=== PATIENT | male | born 1950 | race Caucasian/White ===

== ENCOUNTER 2018-01-25 05:28 | Day surgery (SDC) | payer OTHER ==
[~2018-01-25] VITALS: Ht 172.7 cm; Wt 82.6 kg
--- NOTE | ~2018-01-25 | OP ---
PATIENT NAME: GIFTY OLEA MEDICAL RECORD: [id number] :49 LOCATION:[facility] ADMISSION DATE: SURGEON: AMOS LINN MD DATE OF OPERATION: 01/25/2018 PREOPERATIVE DIAGNOSIS: Claudication of the left lower extremity with rest pain. POSTOPERATIVE DIAGNOSES: 1. Claudication of the left lower extremity with rest pain. 2. Multilevel arterial stenoses, flow limiting, within the superficial femoral artery, left. 3. 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 4. Multilevel stenoses within the posterior tibial artery on the left. 5. Stenosis of the tibioperoneal trunk as well as the peroneal artery. The peroneal artery then becomes much larger. PROCEDURE: 1. Diamondback orbital atherectomies of the tibioperoneal trunk/peroneal artery, utilizing a Diamondback 1.5 mm crown. 2. Orbital atherectomies of the superficial femoral artery/popliteal artery utilizing the Diamondback 1.5 mm crown. 3. Post-atherectomy, balloon angioplasties of the tibioperoneal trunk and peroneal artery, 3.0 mm. 4. Balloon angioplasty of the left superficial femoral artery/popliteal artery, 5.0 mm. 5. Pelvic aortogram with runoff. 6. Selective left common femoral artery. Arteriogram with runoff images. 7. Right external iliac artery arteriogram. 8. Placement of 6-Tunisian crossover sheath, right common femoral artery. 9. Immediate surgeon interpretation of radiographic images. The patient was seen in the holding area. He has rest pain bilaterally. This is worse on the left. He has claudication that is severe on the left. No open wounds. No radiologist was present for this procedure. Static images as well as fluoroscopic cine images were obtained and are kept in the PACS system. The surgeon interpretation of the radiographic images is dictated within the body of this operative note. OPERATIVE COURSE: The patient was conveyed to the operating room electively on 01/25/2018. General anesthesia was induced by the anesthesia staff. Both groins were sterilely prepped and draped. Under ultrasonographic guidance, I percutaneously accessed the right common femoral artery in a retrograde fashion. Utilizing micropuncture technique, a microwire was placed under fluoroscopy. A small dilator and sheath were placed. The dilator wire were removed. Through the sheath, 0.035 J wire was advanced. Over the 0.035 J wire, a 5-Tunisian dilator sheath was advanced. The dilator and wire were removed. The sheath was sutured in place. Through the sheath, I performed a "sheathogram" which was a nonselective right external iliac arteriogram. This was done to determine whether there were stenoses or plaque within the superficial femoral artery that would preclude placement of a closure device such as an Angio-Seal, at the end of the procedure. The arteries were smooth-walled and were of significant size OPERATIVE REPORT [id number] GIFTY OLEA to accommodate a 6-Tunisian Angio-Seal. Through the sheath, I advanced 0.035 Glidewire. It was advanced up into the aorta. Over the Glidewire I advanced a 5-Tunisian pigtail catheter. I reformed the pigtail catheter in the distal aorta. A pelvic aortogram was performed. The patient had a previous known mild contrast allergy. For this reason, he was premedicated prior to this procedure with Benadryl as well as the steroids. I then advanced the Glidewire. I withdrew the pigtail catheter. I cutoff all portion of the pigtail catheter. I advanced it back over the Glidewire. The Glidewire was removed. I was able to place the pigtail catheter over the aortic bifurcation and was able to advance a Glidewire up the catheter and down the left external iliac system and into the left femoral arterial system. I advanced the pigtail catheter. I removed the Glidewire. Through the pigtail catheter, I advanced an Amplatz wire. Pigtail catheter was removed. Over the Amplatz wire, I removed the 5-Tunisian sheath. I advanced a crossover 6-Tunisian sheath. Through the sheath, sequential arteriograms were performed under digital subtraction. We also performed a bolus jacob arteriogram. Glow 'N Tell tapes were applied. We took some obliques as well. There appeared to have been at least 2 flow-limiting stenoses within the left superficial femoral artery, one was about 85% stenosis, it was focal. Another one was longer and was about 60% stenosis. Images were obtained below the knee as well. The findings are listed above. There was a very large distal peroneal artery and it actually reconstituted the anterior tibial artery. There was a very large posterior tibial artery down into the foot, which supplied most of the blood supply to the foot; however, the dorsalis pedis artery was still patent. I advanced a Regalia wire. Over the Regalia wire, I advanced a Quick-Cross catheter. It was advanced down of the peroneal artery. Through the Quick-Cross catheter, I advanced the FiberWire and the Quick-Cross catheter was then removed. Over the FiberWire, I loaded a 1.5 mm Diamondback crown and performed orbital atherectomies at low, medium and high speeds of the superficial femoral artery as well as the popliteal artery. I then used the same crown at low and medium speeds to perform orbital atherectomies of the tibioperoneal trunk and the proximal peroneal artery. The Diamondback crown was removed. The FiberWire was kept in place. A subsequent arteriograms revealed improvement in the stenoses; however, there were suboptimal improvements and for this reason, balloon angioplasties were indicated. I advanced a 3 mm angioplasty balloon. Balloon angioplasties at 3 minutes were performed in the peroneal artery as well as the tibioperoneal trunk. I changed out the 3 mm balloon for a very long 5 mm balloon. Balloon angioplasties at 8 atmospheres times 3 minutes were performed. I balloon angioplastied the entire length of the superficial femoral artery as well as the popliteal artery. Angioplasty balloon was removed. A bolus jacob arteriogram was attempted; however, the improvement in flow was so great that the architectural technician really could not keep up with the contrast bolus. For this reason, sequential digital subtraction images were obtained down the entire extremity. The flow was much, much more brisk than it had before of the arterial interventions. There had been marked improvement in the stenoses. I saw no residual significant stenosis of greater than 10% in the superficial femoral artery. I noted no stenosis within the popliteal artery. There was a residual 10% stenosis within the tibioperoneal trunk. I noted no significant stenosis within the peroneal artery. OPERATIVE REPORT [id number] GIFTY OLEA I removed the Fiberwire, I advanced a Glidewire. The crossover sheath was removed. I then advanced an Angio-Seal device. It was deployed. Hemostasis was immediate. Pressure was held for 20 minutes. A sand bag was applied. The patient was then extubated and conveyed to post-anesthesia care unit where he was in stable condition. My plan is to dismiss him back to the residential later on today. He will need to lie flat for 4 hours before going back to the residential. I am going to recommend that he be placed on Plavix for life. Should he have recurrent symptoms or worsening in claudication or even open wounds than we could reintervene and at that time could try to recanalize the anterior tibial artery and also correct the multiple level stenoses within the posterior tibial artery. However, I thought that it was best not to be too aggressive in this man's case for fear that we could actually make things worse. TRANSINT:[id number] Voice Confirmation ID: [id number] DOCUMENT ID: [id number] AMOS LINN MD at 0039 CC: NATALIE LEDESMA MD, AMOS HAUSER MD, RAISA PRICE MD and [id number] DICTATION DATE: 01/25/181853 ASSISTANT ADMINISTRATOR: 01/25/182007 [facility] 01/25/18 [facility] [address] [place] [address]
[2018-01-25 06:21] LABS: ANION GAP 16.1 mmol/L (8-16); CALCIUM 9.1 mg/dL (8.5-10.1); CARBON DIOXIDE 24.4 mmol/L (21.0-32.0); POTASSIUM - SERUM 4.5 mmol/L (3.5-5.1)
[2018-01-25 06:26] LABS: BASOPHILS 0.3 % (0-2); HEMATOCRIT 39.6 % (42.0-54.0); HEMOGLOBIN 12.9 g/dL (13.5-17.5); IMMATURE GRANULOCYTES 0.2 % (0-5); LYMPHOCYTES 26.8 % (15-50); MCH 30.3 pg (26.0-34.0); MCHC 32.6 g/dL (31.0-37.0); MEAN PLATELET VOLUME 10.2 fL (7.4-10.4); MONOCYTES 7.7 % (2-11); PLATELET COUNT 251 10x3/uL (130-400); RBC 4.26 10x6/uL (4.20-6.10)
[2018-01-25 06:27] LABS: APTT 28.3 SECONDS (22.8-39.4); INR 0.94 (0.85-1.17); PROTIME 12.2 SECONDS (11.6-15.0)
[2018-01-25] MEDS ORDERED: NORVASC10 MG PO (07:44)
[2018-01-25] MEDS ORDERED: PROTONIX20 MG PO (07:45)
[2018-01-25] MEDS ORDERED: FLOMAX0.4 MG PO (07:45)
[2018-01-25] MEDS ORDERED: BAYER CHEWABLE81 MG PO (07:45)
[2018-01-25] MEDS ORDERED: ZOCOR20 MG PO (07:46)
[2018-01-25] MEDS ORDERED: LASIX40 MG PO (07:46)
[2018-01-25] MEDS ORDERED: HUMULIN 70100 UNIT/1 SC ×2 (07:47→07:48)
[2018-01-25] MEDS ORDERED: ACETAMINOPHEN500 M1 PO (07:48)
[2018-01-25] MEDS ORDERED: CETIRIZINE HCL5 MG PO (07:49)
[2018-01-25 07:58] VITALS: Ht 172.7 cm; Wt 82.6 kg
[2018-01-25] MEDS ORDERED: CYMBALTA20 MG PO (08:05)
[2018-01-25] MEDS ORDERED: GABAPENTIN100 MG PO (08:05)
== END 2018-01-25 19:48 | disposition home or self-care (01) ==
LOC: D.SDCHOLD 05:28 → D.OPS 05:28 → EDBD 05:28 → D.SDCHOLD 05:28 → EDSTATUS 09:30 → D.SDCHOLD 09:30 → D.OPS 19:48
PROVIDERS: Anesthesiology
DX: I70.222 Atherosclerosis of native arteries of extremities with rest pain, left leg (principal); I70.92 Chronic total occlusion of artery of the extremities; Z01.812 Encounter for preprocedural laboratory examination

== ENCOUNTER 2018-10-18 05:22 | Day surgery (SDC) | payer OTHER ==
[~2018-10-18] VITALS: Ht 172.7 cm; Wt 82.6 kg
[~2018-10-18 05:22] MED LIST: ACETAMINOPHEN500 M1 PO; BAYER CHEWABLE81 MG PO; CETIRIZINE HCL5 MG PO; CYMBALTA20 MG PO; FLOMAX0.4 MG PO; GABAPENTIN100 MG PO; HUMULIN 70100 UNIT/1 SC; LASIX40 MG PO; NORVASC10 MG PO; PROTONIX20 MG PO; ZOCOR20 MG PO
[2018-10-18] MEDS ORDERED: GABAPENTIN100 MG PO (06:20)
[2018-10-18] MEDS ORDERED: PAMELOR 25 MG C25 MG PO (06:20)
[2018-10-18] MEDS ORDERED: PROSCAR5 MG PO (06:21)
[2018-10-18] MEDS ORDERED: HUMULIN 70100 UNIT/1 SC ×2 (06:25)
[2018-10-18] MEDS ORDERED: ZESTRIL20 MG PO (06:26)
[2018-10-18] MEDS ORDERED: OMEPRAZOLE20 M1 PO (06:28)
[2018-10-18] MEDS ORDERED: PLAVIX75 MG PO (06:28)
[2018-10-18] MEDS ORDERED: NEPHRO-VITE RX1 TAB PO (06:29)
[2018-10-18 06:30] LABS: HEMATOCRIT 35.3 % (42.0-54.0); HEMOGLOBIN 11.6 g/dL (13.5-17.5); INR 1.07 (0.85-1.17); MCH 31.3 pg (26.0-34.0); MCHC 32.9 g/dL (31.0-37.0); MCV 95.1 fL (80.0-100.0); MEAN PLATELET VOLUME 9.8 fL (7.4-10.4); PROTIME 13.4 SECONDS (11.6-15.0); RBC 3.71 10x6/uL (4.20-6.10); RDW 14.1 % (11.5-14.5); WBC 4.4 10x3/uL (4.8-10.8)
[2018-10-18] MEDS ORDERED: CARDURA4 MG PO (06:30)
[2018-10-18 06:37] VITALS: BP 137/73; Ht 172.7 cm; Wt 82.6 kg
[2018-10-18 06:50] LABS: ANION GAP 15.3 mmol/L (8-16); CALCIUM 8.9 mg/dL (8.5-10.1); CARBON DIOXIDE 25.2 mmol/L (21.0-32.0); CREATININE - SERUM 5.4 mg/dL (0.6-1.3); POTASSIUM - SERUM 4.5 mmol/L (3.5-5.1)
--- NOTE | 2018-10-18 09:56 | OP ---
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 PROCEDURES: Cystoscopy, transurethral resection of the prostate. SPECIMENS: Prostate resection chips. ESTIMATED BLOOD LOSS: Minimal. FINDINGS: Bilateral lateral lobe hyperplasia, single ureteral orifices bilaterally. No bladder tumors. CLINICAL HISTORY: This is a 68-year-old male, who is a prisoner. He has been in urinary retention since December of 2017. He was initially seen at [facility] and they performed cystoscopy and noted lateral lobe hyperplasia of the prostate. He was scheduled at [facility] for GreenLight laser TURP. However, he had cardiac issues and these had to be addressed first. He now comes here to have the TURP done here. My aim is to resect tissue quickly with the standard resection loop and then convert to the button electrode at the end for better hemostasis. The aim is to send him back to the [facility] facility with a Epperson catheter. He is allergic to multiple drugs, but not Levaquin. He was given Levaquin IV finance professional to the OR. DESCRIPTION OF PROCEDURE: The patient was given induction of general anesthesia. He was then placed in the lithotomy position and prepped and draped. The 21-American cystoscope was introduced and the findings are as outlined above. We then switched to the bipolar resectoscope with normal saline for irrigation. A 24-American resection loop was used for the 26-American resectoscope. First, the posterior floor from the bladder neck to just proximal to the verumontanum was resected. Then, each of the lateral lobe was taken down to the capsule. Finally, some of the anterior fibromuscular stroma was taken down as that was bleeding. We then used the Ellik evacuator to remove all the resection chips. Then, we switched to the button electrode and the entire resection surface was coagulated and smoothed out using the button electrode. At the end of the procedure, no arterial bleeding was seen. There was very minimal to no venous bleeding. The Ellik evacuator was used one last time to remove any small chips that may have remained. We then inserted a 24-American 3-way Epperson catheter into the bladder. The balloon was inflated with 30 cc of sterile water. The balloon inflow port was plugged with a catheter plug. The catheter was put to bag drainage. The patient was then awakened and brought to the recovery room. He will be transferred back to [facility]. TRANSINT:[id number] Voice Confirmation ID: [id number] DOCUMENT ID: [id number] OPERATIVE REPORT [id number] GIFTY OLEA, AMOS Mcginnis MD at 0956 CC: [id number] DICTATION DATE: 10/18/1856 MANAGING PRINCIPAL: 10/18/18 0942 [facility] [address] [place] [address]
== END 2018-10-18 12:00 ==
LOC: D.OPS 05:22
PROVIDERS: Anesthesiology; ATTEND Urology
DX: N40.1 Benign prostatic hyperplasia with lower urinary tract symptoms (principal); N13.8 Other obstructive and reflux uropathy; R33.8 Other retention of urine; Z01.812 Encounter for preprocedural laboratory examination

== ENCOUNTER 2019-03-07 06:12 | Day surgery (SDC) | payer OTHER ==
[~2019-03-07] VITALS: Ht 172.7 cm; Wt 84.4 kg
[~2019-03-07 06:12] MED LIST changes: +CARDURA4 MG PO; +NEPHRO-VITE RX1 TAB PO; +OMEPRAZOLE20 M1 PO; +PAMELOR 25 MG C25 MG PO; +PLAVIX75 MG PO; +PROSCAR5 MG PO; +ZESTRIL20 MG PO
[2019-03-07 07:16] LABS: HEMATOCRIT 38.8 % (42.0-54.0); HEMOGLOBIN 12.4 g/dL (13.5-17.5); MCH 31.5 pg (26.0-34.0); MCV 98.5 fL (80.0-100.0); MEAN PLATELET VOLUME 9.7 fL (7.4-10.4); RBC 3.94 10x6/uL (4.20-6.10); RDW 13.1 % (11.5-14.5); WBC 5.2 10x3/uL (4.8-10.8)
[2019-03-07] MEDS ORDERED: NORVASC10 MG PO (07:22)
[2019-03-07 07:23] LABS: ANION GAP 19.1 mmol/L (8-16); CARBON DIOXIDE 22.2 mmol/L (21.0-32.0); CREATININE - SERUM 5.4 mg/dL (0.6-1.3)
[2019-03-07 07:25] LABS: POTASSIUM - SERUM 5.3 mmol/L (3.5-5.1)
[2019-03-07 07:30] VITALS: Ht 172.7 cm; Wt 84.4 kg
--- NOTE | 2019-03-07 07:38 | NUR ---
DR RIVERA NOTIFIED AND REVIEWED PATIENT'S BEHAVIOR AND ASSESSMENT RESULTS. PATIENT IS A LOW RISK PER DR RIVERA. RESOURCES GIVEN AND REVIEWED WITH PATIENT AND HE VERBALIZES UNDERSTANDING.
--- NOTE | 2019-03-07 09:52 | NUR ---
0941 PT REPORTS FEELING SHAKY, SKIN W/D. FLBS 41. GIFTY CARLSON CRNA NOTIFIED ORDERS RECEIVED PER DR. ARRIAGA GIVEN PER E-MAR. 12.5G (1/2) D50 GIVEN IV.
--- NOTE | 2019-03-07 12:07 | NUR ---
PT STATED ALLERGY TO IVP DYE BUT IODINE ON SKIN WAS NOT A PROBLEM
--- NOTE | 2019-03-07 13:06 | OP ---
PATIENT NAME: GIFTY OLEA MEDICAL RECORD: [id number] :48 LOCATION:[facility] ADMISSION DATE: SURGEON: ANGUS RAMOS MD DATE OF OPERATION: 03/07/2019 SURGEON: Angus Ramos MD ANESTHESIA: TIVA by Angus Fontaine MD DIAGNOSIS: Urinary retention post-transurethral resection of the prostate. PROCEDURES: Cystoscopy. FINDINGS: No urethral stricture, no prostatic obstruction, no bladder neck contracture. No bladder tumors. BLOOD LOSS: None. CLINICAL HISTORY: This is a 68-year-old male prisoner who claims to have gone into urinary retention after he had a TURP in 2018. He comes to have cystoscopy to check for a urethral stricture or bladder neck contracture the cause of his urinary retention. He was given [employer] electronic health records specialist to the OR. DESCRIPTION OF PROCEDURE: The patient was given IV sedation. He was placed into lithotomy position and prepped and draped. A 17-Sami cystoscope was used for visualization. No lower urinary tract obstruction of any kind was seen. The bladder was left partly full for a voiding trial and the scope was removed. If he is unable to void, then he will have to go back to skilled nursing with an indwelling Epperson catheter. 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 TRANSINT:[id number] Voice Confirmation ID: [id number] DOCUMENT ID: [id number] ANGUS RAMOS MD at 1306 CC: [id number] DICTATION DATE: 03/07/19 1208 INFORMATICS NURSE: 03/07/19 1300 [facility] [address] [place] [address]
--- NOTE | 2019-03-07 14:06 | NUR ---
1215 RETURNED TO 2505 GUARDS AT SIDE FSBS 83.
== END 2019-03-07 13:30 | disposition home or self-care (01) ==
LOC: D.OPS 06:12
PROVIDERS: Anesthesiology; ATTEND Urology
DX: R33.9 Retention of urine, unspecified (principal); Z98.890 Other specified postprocedural states; Z95.1 Presence of aortocoronary bypass graft

== ENCOUNTER 2019-09-27 19:01 | Inpatient (IN) | payer MEDICAID ==
[~2019-09-27] VITALS: Ht 172.7 cm; Wt 89.5 kg
[2019-09-27 19:51] LABS: BASOPHILS 0 % (0-2); EOSINOPHILS 0.8 % (0-7); HEMATOCRIT 29.9 % (42.0-54.0); HEMOGLOBIN 9.2 g/dL (13.5-17.5); IMMATURE GRANULOCYTES 0.4 % (0-5); LYMPHOCYTES 17.7 % (15-50); MCH 30.7 pg (26.0-34.0); MCHC 30.8 g/dL (31.0-37.0); MCV 99.7 fL (80.0-100.0); MEAN PLATELET VOLUME 10.4 fL (7.4-10.4); MONOCYTES 18.4 % (2-11); NEUTROPHILS 62.7 % (40-80); RDW 13.3 % (11.5-14.5); WBC 2.7 10x3/uL (4.8-10.8)
[2019-09-27 19:53] LABS: PLATELET COUNT 199 10x3/uL (130-400)
--- NOTE | 2019-09-27 19:59 | NUR ---
PATIENT IN WITH C/O COUGH, FEVER, GENERAL WEAKNESS X 4 DAYS. [facility], MANY HAVE TESTED COVID POSITIVE, PATIENT HAS A COVID TEST PENDING, GUARDS X 2 AT BEDSIDE, PATIENT IS IN HANDCUFFS AND SHACKLES.
[2019-09-27 20:03] VITALS: BP 101/61
[2019-09-27 20:09] LABS: CALCIUM 8.4 mg/dL (8.5-10.1); CARBON DIOXIDE 23.5 mmol/L (21.0-32.0); CREATININE - SERUM 9.2 mg/dL (0.6-1.3); POTASSIUM - SERUM 5.5 mmol/L (3.5-5.1)
[2019-09-27 20:14] LABS: APTT 36.2 SECONDS (22.8-39.4); INR 1.03 (0.85-1.17); PROTIME 13.5 SECONDS (11.6-15.0)
[2019-09-27 20:15] LABS: D-DIMER-QUANTITATIVE 0.7 ug/mLFEU (0.20-0.54)
[2019-09-27 20:26] LABS: ALBUMIN 3.1 g/dL (3.4-5.0); BILIRUBIN - TOTAL 0.46 mg/dL (0.2-1.3); C-REACTIVE PROTEIN 5.4 mg/dL (0.0-0.9); MAGNESIUM - SERUM 2.1 mg/dL (1.8-2.4); PROTEIN - SERUM 6.2 g/dL (6.4-8.2); THYROID STIMULATING HORMONE 2.07 uIU/mL (0.36-3.74)
[2019-09-27 20:29] LABS: TROPONIN-I 11.64 ng/mL (0.000-0.060)
--- NOTE | 2019-09-27 20:54 | NUR ---
STAT ECHO CALLED AT THIS TIME.
--- NOTE | 2019-09-27 21:17 | NUR ---
DR. RIVERA NOTIFIED AND REVIEWED PT'S BEHAVIOR AND ASSESSMENT RESULTS. PT IS A LOW RISK PER DR. RIVERA. DR. RIVERA STATED TO GIVE RESOURCES TO PT AT TIME OF DISCHARGE. NO FURTHER ORDERS AT THIS TIME. RESOURCES REVIEWED WITH PT AND HE VERBALIZED UNDERSTANDING.
--- NOTE | 2019-09-27 21:47 | NUR ---
ECHO FINISHED 2119
[2019-09-27 21:48] VITALS: BP 78/46
--- NOTE | 2019-09-27 22:21 | NUR ---
ROOM IS STILL DIRTY
--- NOTE | 2019-09-27 22:43 | NUR ---
ROOM STILL NOT READY
[2019-09-27 23:15] VITALS: BP 115/60
--- NOTE | 2019-09-27 23:29 | NUR ---
patient arrived to unit
[2019-09-27 23:30] VITALS: BP 111/62
[2019-09-27 23:45] VITALS: BP 79/51
--- NOTE | 2019-09-27 23:45 | NUR ---
REC'D PT FROM ER, PT ASSISTED INTO ICU BED, MONITORS ON AND WORKING. CALL LIGHT WITHIN REACH, SEE FLOW SHEET FOR FURTHER DETAILS. WILL CONTINUE TO OBSERVE.
--- NOTE | 2019-09-27 23:59 | NUR ---
NS STOPPED AT 9717
[2019-09-28] VITALS (21 sets, daily range): BP systolic 0–130; BP diastolic 0–71; Ht 172.7 cm; Wt 89.5 kg
--- NOTE | 2019-09-28 01:50 | NUR ---
CODE BLUE CALLED, SEE CODE BLUE SHEET FOR FURTHER DETAILS.
--- NOTE | 2019-09-28 03:05 | NUR ---
DR. RAO NOTIFIED OF PATIENT CODING, NEW ORDER RECEIVED TO CALL DR. PAIGE.
--- NOTE | 2019-09-28 03:23 | NUR ---
DR. PAIGE NOTIFIED OF PATIENT STATUS, NEW ORDERS RECEIVED.
[2019-09-28 03:52] LABS: ALBUMIN 2.7 g/dL (3.4-5.0); BILIRUBIN - TOTAL 0.59 mg/dL (0.2-1.3); CALCIUM 7.4 mg/dL (8.5-10.1); CREATININE - SERUM 8.9 mg/dL (0.6-1.3); PROTEIN - SERUM 5.3 g/dL (6.4-8.2)
[2019-09-28 03:53] LABS: ANION GAP 8.9 mmol/L (8-16)
[2019-09-28 03:54] LABS: BASOPHILS 0.5 % (0-2); EOSINOPHILS 0.2 % (0-7); HEMATOCRIT 30.8 % (42.0-54.0); HEMOGLOBIN 9.6 g/dL (13.5-17.5); IMMATURE GRANULOCYTES 1.7 % (0-5); LYMPHOCYTES 34.8 % (15-50); MCH 30.9 pg (26.0-34.0); MCHC 31.2 g/dL (31.0-37.0); MEAN PLATELET VOLUME 11.4 fL (7.4-10.4); MONOCYTES 4.9 % (2-11); NEUTROPHILS 57.9 % (40-80); PLATELET COUNT 176 10x3/uL (130-400); RBC 3.11 10x6/uL (4.20-6.10); RDW 13.3 % (11.5-14.5); WBC 4.1 10x3/uL (4.8-10.8)
[2019-09-28 03:57] LABS: POTASSIUM - SERUM 6.4 mmol/L (3.5-5.1)
[2019-09-28 03:58] LABS: CARBON DIOXIDE 48.5 mmol/L (21.0-32.0)
[2019-09-28 04:23] LABS: MAGNESIUM - SERUM 2.1 mg/dL (1.8-2.4)
--- NOTE | 2019-09-28 04:54 | NUR ---
spoke with dr dent. told her patient and dr bill called it at [phone]
--- NOTE | 2019-09-28 07:29 | NUR ---
REGISTRATION SCHEDULING SPECIALIST HERE FOR PT,
--- NOTE | 2019-09-29 08:26 | EC ---
PATIENT:GIFTY OLEA DATE OF SERVICE: 09/27/19 SEX: M MEDICAL RECORD: [id number] DATE OF : 48 LOCATION:[facility] AGE OF PATIENT: 69 ADMISSION DATE: 09/27/19 REFERRING PHYSICIAN: INTERPRETING PHYSICIAN: GENIE MARISCAL MD ECHOCARDIOGRAM REPORT ECHO CHARGES 4 ECHO COMPLETE Date: 09/27/19 CLINICAL DIAGNOSIS: SEPSIS,MURMUR,ELEVATED TROPONIN, HX CAD/CABG ECHOCARDIOGRAPHIC MEASUREMENTS (adult normal given) AC root (d.<3.7cm) 3.4 cm LV Septum d (<1.2 cm> 1.3 cm Valve Excursion 1.2 cm LV Septum (systole) 1.5 cm Left Atria (s.<4.0cm> 4.1 cm LVPW d(<1.2cm) 1.2 cm RV (d.<2.3cm) 4.4 cm LVPW (sytole) 1.4 cm LV diastole(<5.6CM) 5.6 cm MV E-F(>70mm/sec) cm LV systole 4.7 cm LVOT Diameter 2.0 cm MV exc.(>10mm) cm Est.ejection fraction (50-75%) % DOPPLER: LVIT cm/sec A 86.0 cm/sec E 106.0 cm/sec LA cm/sec RVSP 22 mmHg LVOT 103 cm/sec AOP1/2T m/s Asc. Ao 123 cm/sec RVOT 80 cm/sec RA cm/sec PA 96 cm/sec AV Gradient Peak 6.07 mmHg AV Mean 3.83 mmHg AV Area 2.2 cm MV Gradient Peak 6.90 mmHg MV Mean 2.75 mmHg MV Area cm COMMENTS: Assembler Convertible Top: 2 ROXANNE GILLILAND Reception Agent: 3 Dr. Caldera TAPE# PACS Pericardial Effusion N DATE OF SERVICE: Adequate 2D, color flow imaging, spectral Doppler and M-mode. LVH is present. LV internal dimension is normal. Global hypokinesis, mild with more marked septal hypokinesis. Overall, function is reduced at 45% to 50%. Aortic valve is sclerotic. There appears to be vegetation on the noncoronary cusp. There is trivial AI by color flow imaging. Left atrium is mildly dilated at 4.1 cm. Mitral valve shows no prolapse. [id number]-ld-smtxluie MR. Right-sided chambers are grossly normal. Mild TR. ECHOCARDIOGRAM REPORT [id number] GIFTY OLEA TRANSINT:[id number] Voice Confirmation ID: [id number] DOCUMENT ID: [id number] GENIE MARISCAL MD at 0826 CC: [id number] DICTATION DATE: 09/28/19 1506 AUCTION CLERK: 09/28/19 2103 DIS IN 09/28/19 [facility] [address] [place] [id number]
--- NOTE | 2019-09-29 09:03 | NUR ---
Per CMS protocol, restraint report logged into data base.
== END 2019-09-28 07:30 | DRG 208 ==
LOC: D.ER 19:01 → D.ICU 21:55
PROVIDERS: Family Medicine; ADMIT Family Medicine; ATTEND Family Medicine
PROC: 5A1935Z Respiratory Ventilation, Less than 24 Consecutive Hours (ICD-10-PCS; principal; 2019-09-28)
DX: U07.1 COVID-19 (principal); J96.21 Acute and chronic respiratory failure with hypoxia; N18.6 End stage renal disease; J12.89 Other viral pneumonia; I12.0 Hypertensive chronic kidney disease with stage 5 chronic kidney disease or end stage renal disease; I70.92 Chronic total occlusion of artery of the extremities; J44.0 Chronic obstructive pulmonary disease with (acute) lower respiratory infection; E11.22 Type 2 diabetes mellitus with diabetic chronic kidney disease; Z99.2 Dependence on renal dialysis; E78.5 Hyperlipidemia, unspecified; K21.9 Gastro-esophageal reflux disease without esophagitis; N40.0 Benign prostatic hyperplasia without lower urinary tract symptoms; I70.292 Other atherosclerosis of native arteries of extremities, left leg; I95.9 Hypotension, unspecified; E11.3519 Type 2 diabetes mellitus with proliferative diabetic retinopathy with macular edema, unspecified eye; D63.1 Anemia in chronic kidney disease; Z91.14 Patient's other noncompliance with medication regimen; D72.819 Decreased white blood cell count, unspecified